=== PATIENT | male | born 1950 | race Caucasian/White ===

== ENCOUNTER 2023-08-23 06:13 | Day surgery (SDC) | payer MEDICARE, SELFPAY ==
[2023-08-10 13:11] VITALS: BMI 23.9
[2023-08-23] VITALS (7 sets, daily range): BP systolic 103–124; BP diastolic 62–74; BMI 23.9
[2023-08-23] MEDS: NORMOSOL-R 1000 IV (06:35)
--- NOTE | 2023-08-23 09:58 | SUR.PHASEI ---
comfortable in pacu, vss, had 750cc of fluid in OR; IV fluids off in pacu. Dialysis cath capped dressed on abdomen. cotton remains both ears.
== END 2023-08-23 11:00 | disposition home or self-care (01) ==
LOC: SDS 06:13
PROVIDERS: ATTENDING PHYSICIAN Otolaryngology; FAMILY PHYSICIAN Nurse Practitioner Adult Health; OTHER PHYSICIAN Internal Medicine Cardiovascular Disease
DX: H65.23 Chronic serous otitis media, bilateral (principal); H71.02 Cholesteatoma of attic, left ear; H73.92 Unspecified disorder of tympanic membrane, left ear
CPT/HCPCS: 69631; 69436; 88304; 36415; 93005

== ENCOUNTER 2024-04-16 17:44 | Emergency (ER) | payer MEDICARE, SELFPAY ==
[2024-04-16 17:46] VITALS: BP 111/84
--- NOTE | 2024-04-16 19:09 | ED.GENMED ---
History of Present Illness
General
Chief Complaint: Headache
Source: patient
Exam Limitations: none
Time Seen by Provider: 04/16/24 18:53
History of Present Illness
History of Present Illness:
This is a 73 year old male that comes in with c/o neck and head pain. state that this started on Wednesday when he got up and has been getting worst. States that this started on the back of his head and comes around to the ears and goes up the back of
his head. States that it has been constant and that he feels weak. States that he has taken Tramadol, Tylenol and Excedrin and nothing helps. States that when he stands up he has to wait as he feels off balance and then he will be fine. States that
his is occasionally nauseated wit the headache. Patient also self caths 2 times daily. Denies any fever, chills, chest pain, SOB, abd pain, vomiting, diarrhea, dizziness.
Past History
Past History
ED Past Medical History: HTN, Hypercholesterolemia, Renal failure (peritoneal dialysis) and Other (Back pain, Leg pain, Sleep apnea, )
ED Past Surgical History: Orthopedic (Right hip replacement. Left knee replacement, Left ankle ORIF) and Other (Hernia repair, Multiple ear surgery, Myringotomy tube right)
Social History
Tobacco: Non-smoker
Alcohol: Occasional
Personal:
Living: with family
Review of Systems
Review of Systems
All Other Systems: ROS reviewed and negative except as documented in HPI and ROS
Constitutional: Reports no symptoms; Denies fever or chills
EENT: Reports no symptoms
Respiratory: Reports no symptoms; Denies cough or trouble breathing
Cardiac: Reports no symptoms; Denies chest pain
ABD/GI: Reports nausea; Denies abdominal pain, vomiting or diarrhea
: Reports no symptoms
Musculoskeletal: Reports no symptoms
Neurological: Reports headache and weakness; Denies dizzy
Psychiatric: Reports no symptoms
Phy Exam
General Physical Exam
General Presentation: no apparent distress
General age: appears stated age
General Skin: warm and dry
General Habitus: elderly
General Mental: alert
General Hydration: dry mucous membranes
ENT Exam
ENT Exam: pharynx normal and other (Myringotomy tube right TM, )
Eye Exam
Eye Exam: EOMI
Cardiovascular Exam
Cardiovascular Exam: regular rate/rhythm, no edema, normal peripheral pulses and other (Murmur)
Pulmonary Exam
Pulmonary Exam: lungs clear, no respiratory distress, no rales, chest non tender, no crackles, no rhonchi, no wheezing and no cough
Gastrointestinal Exam
Gastrointestinal Exam: normal bowel sounds, non tender, soft, no organomegaly, no pulsatile mass, non distended and other (Left sided mid Dialysis catheter)
Musculoskeletal Exam
Musculoskeletal Exam: full ROM and neck pain (bilateral neck tenderness with palpation, Negative Cervical spine tenderness. )
Skin Exam
Skin Exam: normal color, warm/dry, no rash and no petechia
Psychiatric Exam
Psychiatric Exam: normal mood/affect
Course
Orders/Labs/Results
Orders:
Orders
04/16/24 19:07
CT Head & Neck Angio W/wo IV Urgent
Comment:
Reason For Exam: Bilateral neck pain up the back of the head to ear
Dexamethasone Sod Phosphate [Decadron] 20 mg IV NOW STA
04/16/24 19:08
0.9% Sodium Chloride 500 ml [Nss] 500 ml IV BOLUS
Acetaminophen 1000MG/100Ml [Ofirmev] 1,000 mg in 100 ml IV ONCE
Acetaminophen IV Indication:: ED Narcotic Naive Pt-ONCE
04/16/24 19:48
Complete Blood Count/With Diff Urgent
Comprehensive Metabolic Panel Urgent
Abnormal Lab Results
04/16/24
19:48
RBC 2.98 L 10^6/uL
(4.70-6.10)
Hgb 9.8 L g/dL
(13.0-18.0)
Hct 28.5 L %
(39.0-52.0)
MCV 95.6 H fL
(80.0-94.0)
MCH 32.9 H pg
(27.0-31.0)
Abs Immat Gran (auto) 0.1 H 10^3/uL
(0-0.05)
Absolute Neuts (auto) 7.5 H 10^3/uL
(1.4-6.5)
Absolute Lymphs (auto) 1.0 L 10^3/uL
(1.2-3.4)
Absolute Monos (auto) 1.2 H 10^3/uL
(0.1-0.6)
Immature Gran % 0.7 H %
(0-0.5)
Lymphocytes % 10.0 L %
(20.5-51.1)
Monocytes % 11.5 H %
(1.7-9.3)
Sodium 129 L mmol/L
(135-145)
Chloride 90 L mmol/L
(98-107)
BUN 82 H mg/dl
(9-20)
Creatinine 9.9 H* mg/dL
(0.7-1.3)
Total Protein 5.4 L g/dl
(6.3-8.2)
Albumin 3.2 L g/dl
(3.5-5.0)
04/16/24 19:48
04/16/24 19:48
H/H low, Anemia, Hyponatremia, chloride low. chronic renal failure, Total protein low. Albumin slightly low.
Vital Signs
Initial and Last Documented VS:
Initial Vital Signs
Temp Pulse Resp BP Pulse Ox
97.6 F 84 16 111/84 99
04/16/24 17:46 04/16/24 17:46 04/16/24 17:46 04/16/24 17:46 04/16/24 17:46
Last Documented Vital Signs
Temp Pulse Resp BP Pulse Ox
97.6 F 72 16 121/85 98
04/16/24 17:46 04/16/24 21:55 04/16/24 21:55 04/16/24 21:55 04/16/24 21:55
MDM/Problems Addressed
MDM/Problems Addressed:
This is a 73 year old male that comes in with c/o neck and head pain that started on Wednesday when he awoke. States that this has been constant.
will check labs, CT angio head and neck. Will medicate for pain.
Back into see patient. Patient states that he is feeling better. Explained ayleen this CT is negative for acute process. There is a nodule on the Thyroid that can be further evaluated by the PCP. Also notified patient that his Sodium is low and his PCP
can repeat labs in the next 2-3 days for recheck. Patient to limit his water intake. Patient can use heat or ice to the neck for pain. Tylenol 1000mg every 6hours for pain. Return with any concern.
Chronic conditions affecting care: Kidney disease
Acute Exacerbation and/or Progression of Chronic Illness:
NA
*Radiology
Radiology exam reviewed: radiology read reviewed (CTA head and neck-No acute intracranial abnormality. calcific atherosclerotic changes of the carotid arterial system bilaterally without hemodynamically significant stenosis. No findings to suggest
internal carotid artery or vertebral artery dissection bilaterally. No significant proximal ) and all reviewed NAD by ED Provider (CT cont-intracranial arterial stenosis. Approximate 0.6cm low attenuation left lobe thyroid nodule. This could be
further evaluated with dedicated elective Thyroid ultrasound. )
*Pulse Oximetry
Patient hypoxic: no
*EKG
Interpreted by ED Provider?: NA
Rate: EKG- N/A
*Land Surveyor Manager Interpretation
Rate: Land Surveyor Manager- N/A
*Critical Care Note
Total Time (30-74mins, 75-104mins- exclusive of procedures): Not Applicable
ED Attending Note
-
Portions of this chart may have been created with voice recognition software.� Occasional wrong word or��sound alike� substitutions may have occurred due to the inherent limitations of voice recognition software.
Discharge Plan
Departure
Patient Disposition: Home (Routine Discharge)
Date of Disposition: 04/16/24
Time of Disposition: 22:11
Patient with high blood pressure during this ER visit?: No
Condition: Good
Covid-19: Not Applicable
Discharge Problem:
Headache, Acute neck pain
Instructions: Neck pain, Headache, Adult (DC)
Prescriptions:
No Action
atorvastatin 40 mg Tablet
40 mg PO HS
finasteride 5 mg Tablet
5 mg PO DAILY
sevelamer HCl 800 mg Tablet
1,600 mg PO TID
calcitriol 0.5 mcg Capsule
0.5 mcg PO Q48H
losartan 100 mg Tablet
100 mg PO DAILY
carvedilol 12.5 mg Tablet
12.5 mg PO BID
sertraline 100 mg Tablet
100 mg PO DAILY
Nephro-Asher 0.8 mg Tablet
1 tab PO DAILY
spironolactone 50 mg Tablet
50 mg PO DAILY
Auryxia 210 mg iron Tablet
420 mg PO BID
Referrals:
UNKNOWN - PT DOES,NOT KNOW [Family Provider] -
Activity Restrictions/Additional Instructions:
As discussed, your blood work shows that you are anemic. Your chronic renal failure was also noted. Your CT of the head and neck is negative for any acute process. There is a nodule noted on the Thyroid that will need further evaluation by an
ultrasound. This can be ordered by your family doctor. Your Sodium is slightly low. Please limit your water intake and have your family doctor recheck your blood work in the next 2-3 day. You may use Heat or ice to the neck to help with pain. You
may also use Tylenol 1000mg every 6 hours for pain. IF YOU HAVE ANY OTHER CONCERNS PLEASE RETURN TO THE EMERGENCY ROOM.
Interventions
Interventions:
*Risk Screen - Suicide Last Done: 04/16/24 17:46
*General Assessment Last Done: 04/16/24 19:34
*Neglect/Abuse Screening Last Done: 04/16/24 17:46
ED- Fall Risk Assessment Last Done: 04/16/24 19:56
*ED COVID-19 Vaccine History Last Done: 04/16/24 19:34
ED- Neurological Assessment Last Done: 04/16/24 19:56
Discharge Date and Time
Print Language: BELARUSIAN
[2024-04-16 19:34] VITALS: BP 120/86; BMI 21.6
[2024-04-16] MEDS: NSS 500 IV (19:51)
[2024-04-16 19:54] LABS: % Basophils 0.5 % (0-2); % Eosinophils 3.3 % (0-6); % Immature Granulocytes 0.7 % (0-0.5); % Monocytes 11.5 % (1.7-9.3); Absolute Basophils 0.1 10^3/uL (0-0.2); Absolute Eosinophils 0.3 10^3/uL (0-0.7); Absolute Immature Granulocytes 0.1 10^3/uL (0-0.05); Absolute Monocytes 1.2 10^3/uL (0.1-0.6); Absolute Neutrophils 7.5 10^3/uL (1.4-6.5); Hematocrit 28.5 % (39.0-52.0); Hemoglobin 9.8 g/dL (13.0-18.0); Mean Corp Hgb Conc. 34.4 g/dL (33.0-37.0); Mean Corpuscular Hgb 32.9 pg (27.0-31.0); Mean Corpuscular Volume 95.6 fL (80.0-94.0); Mean Platelet Volume 9.8 fL (7.4-10.4); Nucleated Red Blood Cells % 0 % (-); Platelet Count 241 10^3/uL (130-400); Red Blood Cell Count 2.98 10^6/uL (4.70-6.10); Red Cell Dist. Width 13.9 % (11.5-14.5); White Blood Cell Count 10.2 10^3/uL (4.8-10.8)
[2024-04-16] MEDS: OFIRMEV 100 IV (19:54)
[2024-04-16 20:00] VITALS: BP 117/81
--- NOTE | 2024-04-16 20:02 | EDRN ---
Pt woke with a posterior headache that goes from his neck up to his ears. Pt has taken tramadol, tylenol and excedrin without relief. No n/v, visual/speech disturbance, dizziness, weakness, fever/chills/cough, cp, sob, urinary symptoms. Pt does
PD at home.
[2024-04-16 20:16] LABS: ALT (SGPT) 22 U/L (0-50); AST (SGOT) 20 U/L (17-59); Albumin 3.2 g/dl (3.5-5.0); Alkaline Phosphatase 62 U/L (38-126); Blood Urea Nitrogen 82 mg/dl (9-20); Carbon Dioxide 22 mmol/L (22-30); Chloride 90 mmol/L (98-107); Estimated Creatinine Clearance 5 ml/min; Glucose 99 mg/dl (70-99); Potassium 3.9 mmol/L (3.5-5.1); Sodium 129 mmol/L (135-145); Total Bilirubin 0.3 mg/dl (0.2-1.3); Total Protein 5.4 g/dl (6.3-8.2); eGFR 5.01
[2024-04-16] MEDS: DECADRON 20 MG IV (20:20)
[2024-04-16 21:55] VITALS: BP 121/85
[2024-04-16 22:00] VITALS: BP 117/87
== END 2024-04-16 22:27 | disposition home or self-care (01) ==
LOC: EMR 17:44
PROVIDERS: Clinical Nurse Specialist Family Health; EMERGENCY PHYSICIAN Student in an Organized Health Care Education/Training Program
DX: R51.9 Headache, unspecified (principal); M54.2 Cervicalgia; E87.1 Hypo-osmolality and hyponatremia; I12.9 Hypertensive chronic kidney disease with stage 1 through stage 4 chronic kidney disease, or unspecified chronic kidney disease; N18.9 Chronic kidney disease, unspecified; D64.9 Anemia, unspecified; E78.00 Pure hypercholesterolemia, unspecified; G47.30 Sleep apnea, unspecified; Z96.652 Presence of left artificial knee joint
CPT/HCPCS: 99284; 96374; 96375; 70496; 70498; 80053; 85025; Q9967

== ENCOUNTER → 2024-09-22 15:04 | Outpatient (REF) | payer MEDICARE, SELFPAY | LOC: CLAB 15:04 | PROVIDERS: ATTENDING PHYSICIAN Physician Assistant | DX: H65.492 Other chronic nonsuppurative otitis media, left ear (principal) | CPT/HCPCS: 87070; 87147; 87186 ==

== ENCOUNTER → 2025-02-08 16:00 | Outpatient (REF) | payer MEDICARE, SELFPAY | LOC: CLAB 16:00 | PROVIDERS: ATTENDING PHYSICIAN Otolaryngology | DX: H65.492 Other chronic nonsuppurative otitis media, left ear (principal) | CPT/HCPCS: 87070; 87147; 87186 ==

== ENCOUNTER → 2025-02-23 14:35 | Outpatient (REF) | payer MEDICARE, SELFPAY | LOC: CLAB 14:35 | PROVIDERS: ATTENDING PHYSICIAN Otolaryngology | DX: H66.3X1 Other chronic suppurative otitis media, right ear (principal); H90.6 Mixed conductive and sensorineural hearing loss, bilateral | CPT/HCPCS: 87070 ==

== ENCOUNTER 2025-03-28 06:52 | Day surgery (SDC) | payer MEDICARE, SELFPAY ==
[2025-03-14 11:09] VITALS: BMI 22.1
[2025-03-14 11:52] LABS: Hematocrit 28.1 % (39.0-52.0); Hemoglobin 9.4 g/dL (13.0-18.0); Mean Corp Hgb Conc. 33.5 g/dL (33.0-37.0); Mean Corpuscular Volume 95.6 fL (80.0-94.0); Platelet Count 254 10^3/uL (130-400); Red Cell Dist. Width 14.2 % (11.5-14.5)
[2025-03-14 12:54] LABS: Blood Urea Nitrogen 79 mg/dl (9-20); Calcium 9.7 mg/dl (8.4-10.2); Carbon Dioxide 27 mmol/L (22-30); Chloride 95 mmol/L (98-107); Estimated Creatinine Clearance 6 ml/min; Glucose 94 mg/dl (70-99); Potassium 4.0 mmol/L (3.5-5.1); Sodium 131 mmol/L (135-145); eGFR 6.15
[2025-03-28] VITALS (9 sets, daily range): BP systolic 106–136; BP diastolic 70–88; BMI 22.1
[2025-03-28] MEDS: TYLENOL 1000 MG PO (10:46)
[2025-03-28] MEDS: NSS 1000 IV (10:58)
--- NOTE | 2025-03-28 13:04 | PTCARENOTE ---
Dr. Martinez made aware of chest pain complaint at 11:15. Ekg ordered at 12:15, obtained and placed on chart.
== END 2025-03-28 16:26 | disposition home or self-care (01) ==
LOC: SDS 06:52
PROVIDERS: ATTENDING PHYSICIAN Otolaryngology; FAMILY PHYSICIAN Student in an Organized Health Care Education/Training Program
DX: H90.0 Conductive hearing loss, bilateral (principal)
CPT/HCPCS: 69714; C1713; 36415; 80048; 85027; 93005